=== PATIENT | male | born 1975 | race Caucasian/White ===

== ENCOUNTER 2018-04-02 13:56 | Emergency (ER) | payer MEDICARE, MEDICAID ==
[~2018-04-02] VITALS: Ht 185.4 cm; Wt 93.4 kg
[~2018-04-02 13:56] MED LIST: ABILIFY15 MG PO; ATIVAN0.5 MG PO; ATIVAN1 MG PO; BENICAR20 MG PO; BUSPAR30 MG PO; DOXYCYCLINE 10100 M2 PO; EFFEXOR XR150 MG PO; EFFEXOR XR75 MG PO; FIORICET 50-301 EACH PO; IRON325 PO; LAMICTAL XR200 MG PO; LEVAQUIN 250 M250 MG PO; LEVOTHYROXINE0.2 M1 PO; LITHIUM CARBON150 MG PO; LITHIUM CARBON600 MG PO; NEXIUM40 MG PO; NORVASC10 MG PO; OXCARBAZEPINE600 MG PO; PAXIL40 MG PO; TRIFLUOPERAZINE2 M1 PO; ULTRAM 50MG TAB50 MG PO
[2018-04-02] MEDS ORDERED: TOPAMAX 100 MG100 MG PO (14:23)
[2018-04-02 14:34] LABS: ABSOLUTE LYMPHOCYTES 1.8 thou/uL (0.8-5.3); ABSOLUTE MONOCYTES 0.8 thou/uL (0.0-1.2); ABSOLUTE NEUTROPHILS 3.1 thou/uL (1.6-8.1); BASOPHILS 0.1 %; EOSINOPHILS 0.2 %; HEMOGLOBIN 13.2 gm/dL (14.0-18.0); LYMPHOCYTES 31.5 %; MCH 28.7 pg (26.0-34.0); MCHC 33.8 g/dL (28.0-37.0); MCV 84.8 fL (80.0-100.0); MONOCYTES 13.8 %; NUCLEATED RBCS 0 /100WBC; PLATELET COUNT* 223 thou/uL (150-400); POLYS 54.4 %; RBC 4.61 mil/uL (4.50-6.00); RDW-CV 13.1 % (10.5-14.5); WBC 5.8 thou/uL (4.0-11.0)
[2018-04-02 14:43] LABS: CALCIUM 8.7 mg/dL (8.5-10.1); CREATININE 1.6 mg/dL (0.6-1.3); POTASSIUM 3.5 mmol/L (3.5-5.1)
[2018-04-02 14:44] LABS: APTT 31.5 Seconds (25.0-31.3); PROTIME 10.7 Seconds (9.20-11.50)
[2018-04-02 14:47] LABS: ALBUMIN 3.7 g/dL (3.4-5.0); TOTAL BILIRUBIN 0.3 mg/dL (<0.1-1.0); TOTAL PROTEIN 7.3 g/dL (6.4-8.2)
[2018-04-02 15:13] VITALS: BP 123/70
== END 2018-04-02 15:14 | disposition home or self-care (01) ==
LOC: M.ERS 13:56
PROVIDERS: Family Medicine
DX: R05 Cough (principal); T43.595A Adverse effect of other antipsychotics and neuroleptics, initial encounter; K21.9 Gastro-esophageal reflux disease without esophagitis; G43.909 Migraine, unspecified, not intractable, without status migrainosus; F31.9 Bipolar disorder, unspecified; F20.9 Schizophrenia, unspecified; Z90.49 Acquired absence of other specified parts of digestive tract; Y92.89 Other specified places as the place of occurrence of the external cause